=== PATIENT | female | born 1950 | race Caucasian/White ===

== ENCOUNTER 2019-02-17 15:36 | Inpatient (IN) | payer OTHER, SELFPAY ==
[2019-02-17] VITALS (14 sets, daily range): BP systolic 118–214; BP diastolic 57–88; PULSE 64–74; RESP 12–18; TEMP 36.6–37.1; O2SAT 88–99; BMI 33.1
[2019-02-17] MEDS: LACTATED RINGERS 1,000 ML 42 ML IV (16:00)
[2019-02-17] MEDS: VANCOMYCIN 1,000 MG/200 ML PIGGYBACK 200 MG IV ×2 (17:55→22:12)
--- NOTE | 2019-02-17 18:08 | SUR.OPER ---
Patient's right wrist displayed red splotches in approximate 6 inch square area prior to surgical procedure.
[2019-02-17] MEDS: fentaNYL 100 MCG/2 ML INJ 50 MCG IV (18:38)
--- NOTE | 2019-02-17 18:39 | PM.OP.1 ---
Operative Date/Time/Diagnoses Date of procedure: 02/17/19 Time of procedure: 18:41 Pre-op diagnosis: Postoperative infection after right carpal tunnel release Post-op diagnosis: same Procedure & Clinicians Procedure: Incision and drainage of deep abscess right wrist Same procedure as scheduled: Yes Indications: The patient is a 68-year-old woman who underwent a right carpal tunnel release approximately [address] Napoleon Lance. She has had swelling and purulent drainage at the surgical incision and has recently developed swelling and the inability to fully extend her fingers. She was seen 2 days ago in clinic and started on oral antibiotics. Unfortunately she did not substantially improve. After discussion the risks benefits and alternatives she has agreed to incision and drainage. Risks discussed included but were not limited to: Potential nerve damage, potential incomplete resolution of infection, potential need for irrigation of the tendon sheath of the fingers, and anesthetic complications such as stroke, myocardial infarction, permanent paralysis and . Surgeon: Troy Saravia Click Yes if Unassisted: Yes Anesthesia Type: General Operative Notes Findings: Edematous synovial scar tissue with no overt purulence. No purulence fluid could be expressed from the fingers into the extended incision. Closure Type: primary Specimen(s): other (Swabs for culture) Prosthetic devices, grafts, tissues, transplants, or devices: None Applied: drain(s) (A Rios drain in the dressing) Estimated Blood Loss (mL): 2 Blood products transfused: none Tourniquet time (min): 28 Procedure in detail: The patient was seen in the preoperative area where she confirmed her right hand was the operative site and this was marked with my initials. She did not receive preoperative antibiotics other than the oral Keflex she had been receiving as an outpatient. She was taken to the operating room and placed on the operating room table where she underwent induction of a general anesthetic. A tourniquet was placed around the proximal forearm and the arm was prepared with Betadine in the usual fashion and drape through sterile drapes. Prior to prepping and draping a multimedia services coordinator-out was performed. The prior surgical incision was extended about 2 cm proximally and distally. This was carried through the forearm fascia to the tendons and followed distally. Although there was some ?dishwater? fluid there was no gross purulence. I then attempted to express any purulence at material from the fingers into the surgical wound by pressing and milking towards the incision. Nothing was produced in the incision. The wound was extensively irrigated after obtaining cultures. Also after obtaining cultures the patient was administered vancomycin intraoperatively. Hemostasis was obtained with electrocautery. A Rios drain was placed in the wound and the skin was closed with horizontal mattress sutures of 4 0 nylon. A bulky dressing was applied to collect the drainage from the Rios drain. The tourniquet was then deflated at a total tourniquet time of 28 minutes. The patient was returned to the recovery room in good condition having tolerated the procedure well. It should be noted that in recovery she confirmed that she had intact light touch in all digits. Complications: none Condition: stable Disposition: PACU Plan for aftercare: We will maintain her in the hospital on vancomycin until clinical improvement and until cultures return with sensitivities to allow outpatient treatment with appropriate antibiotics. The dressing will be removed and the [place] drain removed on Friday morning.
[2019-02-17] MEDS: HYDROCODONE/ACET 5/325 TABLET 1 TAB PO (18:50)
--- NOTE | 2019-02-17 18:50 | P.OP_ITS ---
Operative Date/Time/Diagnoses Date of procedure: 02/17/19 Time of procedure: 18:41 Pre-op diagnosis: Postoperative infection after right carpal tunnel release Post-op diagnosis: same Procedure & Clinicians Procedure: Incision and drainage of deep abscess right wrist Same procedure as scheduled: Yes Indications: The patient is a 68-year-old woman who underwent a right carpal tunnel release approximately [address] Napoleon Lance. She has had swelling and purulent drainage at the surgical incision and has recently developed swelling and the inability to fully extend her fingers. She was seen 2 days ago in clinic and started on oral antibiotics. Unfortunately she did not substantially improve. After discussion the risks benefits and alternatives she has agreed to incision and drainage. Risks discussed included but were not limited to: Potential nerve damage, potential incomplete resolution of infection, potential need for irrigation of the tendon sheath of the fingers, and anesthetic complications such as stroke, myocardial infarction, permanent paralysis and . Surgeon: Troy Saravia Click Yes if Unassisted: Yes Anesthesia Type: General Operative Notes Findings: Edematous synovial scar tissue with no overt purulence. No purulence fluid could be expressed from the fingers into the extended incision. Closure Type: primary Specimen(s): other (Swabs for culture) Prosthetic devices, grafts, tissues, transplants, or devices: None Applied: drain(s) (A Rios drain in the dressing) Estimated Blood Loss (mL): 2 Blood products transfused: none Tourniquet time (min): 28 Procedure in detail: The patient was seen in the preoperative area where she confirmed her right hand was the operative site and this was marked with my initials. She did not receive preoperative antibiotics other than the oral Keflex she had been receiving as an outpatient. She was taken to the operating room and placed on the operating room table where she underwent induction of a general anesthetic. A tourniquet was placed around the proximal forearm and the arm was prepared with Betadine in the usual fashion and drape through sterile drapes. Prior to prepping and draping a medical legal investigator-out was performed. The prior surgical incision was extended about 2 cm proximally and distally. This was carried through the forearm fascia to the tendons and followed distally. Although there was some ?dishwater? fluid there was no gross purulence. I then attempted to express any purulence at material from the fingers into the surgical wound by pressing and milking towards the incision. Nothing was produced in the incision. The wound was extensively irrigated after obtaining cultures. Also after obtaining cultures the patient was administered vancomycin intraoperatively. Hemostasis was obtained with electrocautery. A Rios drain was placed in the wound and the skin was closed with horizontal mattress sutures of 4 0 nylon. A bulky dressing was applied to collect the drainage from the Rios drain. The tourniquet was then deflated at a total tourniquet time of 28 minutes. The patient was returned to the recovery room in good condition having tolerated the procedure well. It should be noted that in recovery she confirmed that she had intact light touch in all digits. Complications: none Condition: stable Disposition: PACU Plan for aftercare: We will maintain her in the hospital on vancomycin until cl inical improvement and until cultures return with sensitivities to allow outpatient treatment with appropriate antibiotics. The dressing will be removed and the [place] drain removed on Friday morning.
--- NOTE | 2019-02-17 18:57 | SUR.PHASEI ---
Reported off to Nathalie MICHELLE.
[2019-02-17] MEDS: HYDROMORPHONE 2 MG INJ 0.5 MG IV ×2 (18:59→19:08)
[2019-02-17] MEDS: diphenhydrAMINE 25 MG TABLET PO ×2 (19:23→22:26)
--- NOTE | 2019-02-17 19:26 | SUR.PHASEI ---
Dr. Desai was informed of pt's elevated blood pressure and she said it would settle down. pt has been given pain medication and ice pack her pain continues to be fluctuate from a 5-7 . pt also takes blood pressure medication at home.
[2019-02-17] MEDS: LACTATED RINGERS 1,000 ML 125 ML IV (20:10)
[2019-02-17 20:48] LABS: Estimated Glomerular Filt Rate > 60.0 mL/min (>60)
[2019-02-17] MEDS: ACETAMINOPHEN 325 MG TABLET 975 MG PO (22:17)
[2019-02-17] MEDS: OXYCODONE IR 5 MG TABLET PO (22:26)
[2019-02-18] VITALS (7 sets, daily range): BP systolic 143–163; BP diastolic 52–72; PULSE 65–82; RESP 16–17; TEMP 36.5–37; O2SAT 93–97
--- NOTE | 2019-02-18 00:19 | PC.NURSE ---
1944- Pt arrived to room 210 from PACU via bed. A/O x4. Right wrist splint/wrap, jens drain unexposed, wiggle fingers, cap refill <2sec, puffy and erythema, pt reports no tingling, and pain 7/10, medicated with percolone 5mg and benedryl 25mg for itching from oxy. RFA LR @ 125. SBA to BRP to void. Hx UC, 40yr iliostomy, changed bag last night at home. VSS, bed alarm on.
[2019-02-18] MEDS: OXYCODONE IR 5 MG TABLET PO ×6 (02:23→23:39)
[2019-02-18 06:39] LABS: Hematocrit 38.5 % (36-46); Hemoglobin 12.7 g/dL (12.0-16.0); Mean Corpuscular HGB Conc 32.9 % (30-36); Mean Corpuscular Hemoglobin 29.6 PG (26-34); Platelet Count 153 X10^3/uL (150-400); Red Blood Cell Count 4.28 X10^6/uL (4.0-5.2); Red Cell Distribution Width 13.8 % (11.6-14.8); White Blood Cell Count 7.1 X10^3/uL (4.5-11.0)
[2019-02-18] MEDS: diphenhydrAMINE 25 MG TABLET PO ×3 (06:43→20:55)
--- NOTE | 2019-02-18 06:46 | PC.NURSE ---
Addendum entered by Brittany Lewis R.N. 02/18/19 07:28: Bedside hand-off report given to Angelica MICHELLE Original Note: Assumed care of pt at 2300 on 02/17/19. Drsg to R. wrist c/d/i. CMS+, able to wiggle fingers. Denies numbness. PO pain medication effective. Low fall risk, Pt now independent in room. Advised pt to call for assist if she feels dizzy or sleepy. IV s.l. at 0645. Pt caring for her ileostomy independently. Advised pt to save all output for accurate documentation. Calling appropriately for needs.
--- NOTE | 2019-02-18 08:49 | CM.DANOTE ---
DCP: Case received, EMR reviewed and met with patient. Introduced self and role. Was able to obtain health history, and living situation from patient. DCP template assessment completed with information currently available. Patient is a 68 year old female who admitted yesterday afternoon to the care of the orthopedic team. Payer: [employer]/Medicare A. Patient came to the hospital secondary to swelling and redness to her right wrist and fingers. Patient had surgery for Carpal Tunnel approximately three weeks ago, with Dr. Chu at [facility]. Patient holds diagnosis of postoperative infection, in which they did surgery yesterday. Met with patient in her room. Pleasant. Stated that she had swelling and redness to her fingers and wrist. She lives home alone, has a son in [facility] named Doc, who is currently out of town. Patient is employed at [employer]. She stated, she has friends that can help her out, and her friend Diana will be the one to pick her up. Patient may also be doing outpatient physical therapy. P: DCP to continue to follow closely and be available for any resources if needed. She will also be working with therapy team. Radha Hale RN/Assistant Federal Public Defender
[2019-02-18] MEDS: ACETAMINOPHEN 325 MG TABLET 975 MG PO ×3 (08:55→22:14)
[2019-02-18] MEDS: LOSARTAN 50 MG TABLET PO (08:55)
[2019-02-18] MEDS: ATENOLOL 25 MG TABLET PO (08:56)
[2019-02-18] MEDS: SODIUM CHLORIDE 0.9% FLUSH 10 ML IV ×2 (08:57→22:15)
[2019-02-18] MEDS: methIMAzole 5 MG TABLET PO (08:57)
--- NOTE | 2019-02-18 09:30 | P.PN_ITS ---
Subjective Date Patient Seen: 02/18/19 Time Patient Seen: 09:26 Interval history: Patient's pain is mild. Denies fever chills. No nausea vomiting. Exam Vital Signs (past 8 hours): - 02/18/19 04:33 02/18/19 08:00 Temperature 97.7 F 98.5 F Pulse Rate 73 82 Respiratory Rate 16 17 Blood Pressure 160/72 H 145/60 H Pulse Oximetry 95 95 Oxygen Delivery Method Room Air Oxygen Flow Rate 0 Narrative Exam Narrative: Pleasant 68-year-old female resting comfortably in bed in no apparent distress. Dressing on the right hand is intact and dry. Good movement of the fingers without pain. Capillary refill less than 2 seconds. Sensation intact to light touch. Minimal swelling about the finger tips. Objective Labs Result Diagrams: 02/18/19 06:00 02/17/19 20:17 Labs: Laboratory Results - last 24 hr 02/17/19 02/18/19 20:17 06:00 WBC 7.1 RBC 4.28 Hgb 12.7 Hct 38.5 MCV 90.0 MCH 29.6 MCHC 32.9 RDW 13.8 Plt Count 153 Creatinine 0.70 Estimated GFR > 60.0 COMMENTS: Comment Aerobic, anaerobic and gram stain Procedure Result Verified Site Gram Stain Final 02/17/191944 No Organism Seen No organisms seen White blood cells Occasional WBC seen Aerobic Culture for wounds Pending Anaerobic Culture Pending Assessment & Plan Post-op Postoperative Procedures Operation Date: 02/17/19 17:00 Actual Procedures Side Surgeon p Incision & Drainage deep wrist abscess Right Troy Saravia MD Postop day 1 status post incision and drainage deep abscess right wrist. Patient will be on IV vancomycin until culture results are back since she failed outpatient treatment with Keflex. Dressing will be removed and the [place] drain removed on Friday morning.
--- NOTE | 2019-02-18 14:25 | PC.NURSE ---
Ortho: Only complaint is the bed, she has had back surgery in the past. Beds were swapped out. Dressing to the rt hand is d/i, fingers sl swollen, has brisk cap refill and moves fingers w/out diff. Po pain meds have been effective. Plan is to do a dressing change tomorrow and cont antibiotics until culture results return. Pt denies any problems at this time, cont w/poc.
--- NOTE | 2019-02-18 18:05 | OT.IP.EVAL ---
Current Diagnoses Infection following a procedure, deep incisional surgical site, initial encounter (02/17/19) Surgery Performed Operation Date: 02/17/19 17:00 Actual Procedures p Incision & Drainage deep wrist abscess(Right) - Troy Saravia MD Occupational Therapy Inpatient Evaluation/Re-Eval M1 PT/OT-IP Prior Functional Status Start: 02/18/19 17:42 Freq: NEEDED Status: Active Protocol: Document 02/18/19 17:42 [facility] (Rec: 02/18/19 18:04 [facility] [id number]) Medical Review Prior Functional Status Medical History Reviewed Yes Diet/Fluid Consistency Regular Thin Liquids Communication Independent. Mobility and Gait Independent with no devices. Activities of Daily Living and IADL's Completely independent with ADL's, IADl's, driving , and working. Social History Household Members none Living Arrangements Apartment/Condo Number of Stairs To Enter/Railing? Pt states had flight of step and landing and another flight of steps with right hand rail to get to her condo. Home Environment Walk in Shower Tub/Shower Home Equipment Front Wheel Walker Straight Cane M2 OT-IP Current Condition Start: 02/18/19 17:42 Freq: Status: Active Protocol: Document 02/18/19 17:42 [facility] (Rec: 02/18/19 18:04 [facility] [id number]) Occupational Therapy Current Condition Current Condition Evaluation Date 02/18/19 Treatment Diagnosis S/P I and D deep abscess right wrist Diagnosis Onset Date 02/17/19 Post Operative Precautions Other Precautions Pt's right hand in splint/ dressing. M3 OT- IP Subjective and Pain Start: 02/18/19 17:42 Freq: Status: Active Protocol: Document 02/18/19 17:42 [facility] (Rec: 02/18/19 18:04 [facility] [id number]) OT- Subjective Occupational Therapy Visit Type Type Initial Evaluation Visit Start Time 11:15 Visit Stop Time 11:25 Total Visit Minutes 10 Occupational Therapy Visit Comments Patient Comments Pt agreeable to do OT eval. Patient/Caregiver Goals To go home. OT Pain Assessment Pain When Pain Assessed At Rest Pain Present Pain Present Denied Pain M4 OT- IP ADL's Start: 02/18/19 17:42 Freq: Status: Active Protocol: Document 02/18/19 17:42 [facility] (Rec: 02/18/19 18:04 [facility] [id number]) OT ADL-Dressing General Eval Lower Body Dressing Ability Independent OT ADL-Toileting General Evaluation Toileting Ability Independent OT ADL-Bathing Comments OT Bathing Comments Not completed. M5 OT- IP IADL's Start: 02/18/19 17:42 Freq: Status: Active Protocol: Document 02/18/19 17:42 [facility] (Rec: 02/18/19 18:04 [facility] [id number]) OT-Instrumental Activities of Daily Living Deficits IADL Deficits Identified No Deficits Home Safety Awareness Awareness of Need for Assistance at Home Good Awareness Ability to Problem Solve Emergency Able to Problem Solve Situations Medication Management Medication Management No Deficits Identified Money Management Money Management No Deficits Identified Letterset Press Set Up Operator Letterset Press Set Up Operator Comments Pt states has friends that can help. M6 OT- IP Functional Cognition Start: 02/18/19 17:42 Freq: Status: Active Protocol: Document 02/18/19 17:42 [facility] (Rec: 02/18/19 18:04 [facility] [id number]) Cognitive Factors Limiting Selfcare Function Cognitive Ability Level of Alertness Alert Patient Orientation Name Age Birthday Month Date Year Day of Week Place Situation Attention Span Ability Capable of Focused Attention Capable of Sustained Attention Ability to Follow Commands Able to Follow Multi-Step Commands Memory Description No Deficits Noted Safety Awareness No Deficits Noted Problem Solving Ability No deficits Noted Executive Function Ability No Deficits Noted Cognitive Comments Cognitive Assessment Comments Pt intact. OT- Vision and Hearing OT- Hearing Assessment OT- Hearing Assessment WFL M7 OT- IP Mobility and Balance Start: 02/18/19 17:42 Freq: Status: Active Protocol: Document 02/18/19 17:42 [facility] (Rec: 02/18/19 18:04 [facility] [id number]) OT- Bed Mobility Assessment Supine to Sit Supine to Sit Assist Independent Sit to Supine Sit to Supine Assist Independent Scooting Scooting to Edge of Bed Independent Scooting Up and Down in Bed Independent OT-Transfer Assessment Sit to and From Stand Sit to and from Stand Independent Transfers Transfer Ability Independent Technique Transfer Destination Bed Devices Transfer Assistive Devices None Gait Belt Comments Mobility Comments Pt completely independent with all mobility needs. OT- Balance Assessment Sitting Balance and Reactions Static Sitting Balance Ability Normal Dynamic Sitting Balance Ability Normal Standing Balance and Reactions Static Standing Balance Ability Normal Dynamic Standing Balance Ability Good M8 OT- IP Objective Assessments Start: 02/18/19 17:42 Freq: Status: Active Protocol: Document 02/18/19 17:42 [facility] (Rec: 02/18/19 18:04 [facility] [id number]) OT Gross Range of Motion Upper Extremity Range of Motion Assessment Right Impaired ROM Impairments Due to swelling and stiffness, pt not able to flex DIP, and PIP all the way. Able to show pt how to isolate to do ROM on her hand with left hand and actively. Pt able to show good understanding and safety. OT Strength Comments Strength Comments WFL except for right hand and wrist due to recent I and D. OT- Coordination Assessment Comments Coordination Comments Decreased for right hand FMS due to swelling. OT Sensation Assessment Comments Summary Comments Right 2nd and 3rd digit not as sensitive during light touch per pt. Edema Edema Present M9 OT- IP Assessment and Plan Start: 02/18/19 17:42 Freq: Status: Active Protocol: Document 02/18/19 17:42 [facility] (Rec: 02/18/19 18:04 [facility] [id number]) OT Summary Assessment and Plan Potential Rehabilitation Potential Excellent Analytic Complexity at Evaluation Low Summary OT Impairments Range of Motion Strength Coordination Sensation Progress Towards Goals Progressing Toward Goals Assessment Summary Pt low complexity and currently independent in the room for all needs of ADl's and functional mobility. Pt awaiting culture for I and D for right wrist. Pt has son and friends that can assist her if needed. Pt may need further therapy of hand therapy once splint/dressing taken off and when deemed appropriate by surgeon. Goals OT-Other Goals Pt to be independent with ROM for right hand. Days to Meet Goals 1 Frequency of Treatment Frequency Of Treatment Once a Day Treatment Plan OT Treatment Plan Therapeutic Exercises Discharge Planning Other Treatment Recommendations and Next To check on pt for any other Treatment Focus OT needs tomorrow. Discharge Recommendations OT Discharge Recommendations Home with Assistance
[2019-02-18] MEDS: VANCOMYCIN 1,000 MG/200 ML PIGGYBACK 200 MG IV (18:07)
--- NOTE | 2019-02-18 23:50 | PC.NURSE ---
Addendum entered by Michelle Zheng R.N. 02/19/19 05:48: Patient slept most of night. States pain is 2-3/10 this morning; achy. Requested/medicated with scheduled Tylenol early as did not want to take Oxycodone at this time. CMS remains intact. Original Note: Patient is alert and oriented. Breath sounds CTA with RA sat of 93%. HRR. BP elevated at 153/53. Denies nausea. BT present; has chronic ileostomy and bag is not see through so unable to assess stoma. Denies dysuria, frequency or urgency. Independent with mobility. Dressing/wrap to right hand is intact; able to see old sanguinous drainage on gauze beneath wrap. States pain is currently 5/10; medicated with Oxycodone and is elevated on pillows; declines ice pack. CMS is intact although has some puffiness to fingers. Refusing SCD's despite information regarding prevention of DVT; verbalizes understanding. Fall risk score is low.
[2019-02-19] MEDS: SODIUM CHLORIDE 0.9% 250 ML 21 ML IV (05:39)
[2019-02-19] MEDS: VANCOMYCIN 1,000 MG/200 ML PIGGYBACK 200 MG IV (05:40)
[2019-02-19] MEDS: SODIUM CHLORIDE 0.9% FLUSH 10 ML IV ×3 (05:41→20:40)
[2019-02-19] MEDS: ACETAMINOPHEN 325 MG TABLET 975 MG PO ×3 (05:41→20:39)
[2019-02-19 05:50] VITALS: BP 158/68; PULSE 66; RESP 16; TEMP 36.9; O2SAT 97
[2019-02-19 08:00] VITALS: BP 161/60; PULSE 69; RESP 18; TEMP 36.8; O2SAT 98
--- NOTE | 2019-02-19 08:40 | PM.PNPO.1 ---
Subjective Date Patient Seen: 02/19/19 Time Patient Seen: 08:40 Interval history: Patient is POD#2 s/p Incision and drainage of deep abscess right wrist with Dr. Saravia. Pain has been well managed with Tylenol and occasional oxycodone. Does have itching with Oxycodone which she has recieved benadryl for. Swelling has improved. She denies any numbness or tingling in the extremity. No chest pain or shortness of breath. Exam Vital Signs (past 8 hours): - 02/19/19 05:50 Temperature 98.4 F Pulse Rate 66 Respiratory Rate 16 Blood Pressure 158/68 H Pulse Oximetry 97 Oxygen Delivery Method Room Air Oxygen Flow Rate 0 Narrative Exam Narrative: Pleasant 68 year old female resting in bed, in no acute distress. Alert and oriented. Mild erythema and swelling about the incision. Full ROM of the fingers. Mild swelling in the wrist and hand. Sensation intact to light touch. 5/5 finger intrinsics. Brisk capillary refill. Objective Labs Result Diagrams: 02/18/19 06:00 02/17/19 20:17 Assessment & Plan Post-op Postoperative Procedures Operation Date: 02/17/19 17:00 Actual Procedures Side Surgeon p Incision & Drainage deep wrist abscess Right Troy Saravia MD Rios drain and surrounding dressing removed. New dressing applied. Patient is pending final cultures and sensitivities. Likely transition to oral antibiotics and discharge home tomorrow.
[2019-02-19] MEDS: OXYCODONE IR 5 MG TABLET PO (09:19)
[2019-02-19] MEDS: diphenhydrAMINE 25 MG TABLET PO (09:20)
[2019-02-19] MEDS: LOSARTAN 50 MG TABLET PO (09:20)
[2019-02-19] MEDS: methIMAzole 5 MG TABLET PO (09:20)
[2019-02-19] MEDS: ATENOLOL 25 MG TABLET PO (09:21)
[2019-02-19 13:00] VITALS: BP 152/60; PULSE 75; RESP 16; TEMP 36.9; O2SAT 97
[2019-02-19 16:00] VITALS: BP 156/76; PULSE 74; RESP 17; TEMP 36.9; O2SAT 98
--- NOTE | 2019-02-19 17:20 | PC.NURSE ---
Addendum entered by Vitaliy Fitzgerald R.N. 02/19/19 19:29: checked after 10 mins and burning returned. IV inspected, flush was painful, no blood return. IV was d/c'd and new one placed in LT FA. by patricia. Addendum entered by Vitaliy Fitzgerald R.N. 02/19/19 18:22: Started antibx through IV, patient immediatly c/o burning w/ Vanco, inspection of IV was done, redness is noted around IV site. Patient denies any pain w/ palpation and states she is certain its from adhesive over IV. Discussed taking IV out and replacing at new site, and lower rate of anti-bx. Patient asked if we can lower rate before removing IV to see if burning improved. Rate was changed to 100ml/hr and burning improved. Margins drawn around erythema at IV site and will cont. to monitor. Original Note: Patient is A&O x4, pleasant and cooperative w/ staff and able to make needs known when nec. Patient is indep. moving in room and ambulated safely on own. Patient reports to OT that she believes her redness and swelling in hand to be increased and ROM has decreased. This nurse was notified. Margins were drawn on around patients redness. Patient reports to this nurse that most of the erythema on top of right hand is a result to a allergic reaction to adhesives from her surgical drg. Margin were drawn around area as well. Patients hand is quite swollen and ROM is limited. Cap refill is <2, patient denies any numbness or tingling to hand. Education done with patient about elevation, having ice on/off of hand for comfort and edema. Coban drg. was removed when this nurse entered room to assess pt. Patient is aware that after ice therapy this nurse will wrap hand in pepe bandage for more support.
--- NOTE | 2019-02-19 18:01 | OT.IP.TRT ---
Current Diagnoses Infection following a procedure, deep incisional surgical site, initial encounter (02/17/19) Surgery Performed Operation Date: 02/17/19 17:00 Actual Procedures p Incision & Drainage deep wrist abscess(Right) - Troy Saravia MD Occupational Therapy Treatment Note M2 OT-IP Current Condition Start: 02/18/19 17:42 Freq: Status: Active Protocol: Document 02/18/19 17:42 [facility] (Rec: 02/18/19 18:04 [facility] [id number]) Occupational Therapy Current Condition Current Condition Evaluation Date 02/18/19 Treatment Diagnosis S/P I and D deep abscess right wrist Diagnosis Onset Date 02/17/19 Post Operative Precautions Other Precautions Pt's right hand in splint/ dressing. M3 OT- IP Subjective and Pain Start: 02/18/19 17:42 Freq: Status: Active Protocol: Document 02/19/19 16:00 [facility] (Rec: 02/19/19 18:01 [facility] [id number]) OT- Subjective Occupational Therapy Visit Type Type Treatment Note Visit Start Time 15:30 Visit Stop Time 16:00 Total Visit Minutes 30 Notes Pt agreeable to see OT and complaining that her fingers feel stiffer. Back of hand swollen more and notes has more redness than this morning on her hand especially with 5th digit of right hand. Occupational Therapy Visit Comments Patient Comments Pt willing to have OT look at her hand. OT Pain Assessment Pain When Pain Assessed At Rest Pain Present Pain Present Pain Reported Location Right Hand Intensity 3 Scale Used Numeric (1 - 10) M4 OT- IP ADL's Start: 02/18/19 17:42 Freq: Status: Active Protocol: Document 02/19/19 16:00 [facility] (Rec: 02/19/19 18:01 [facility] [id number]) OT ADL-Grooming Comments OT Grooming Comments Pt able to do grooming but reminded pt to be sure not to get right hand wet. Having to assist pt to wash right hand with wet wash cloth as per pt still had dried blood from when drain taken out. Notified nursing that the dressing needs to be reinforced as coming up just on her palm. OT ADL-Toileting Comments OT Toileting Comments Pt has been using the toilet on her use and insists that she is managing her Ileostomy bag on her own. OT ADL-Bathing Comments OT Bathing Comments Per pt able to shower and had her right hand gloved during the shower. 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 M6 OT- IP Functional Cognition Start: 02/18/19 17:42 Freq: Status: Active Protocol: Document 02/18/19 17:42 [facility] (Rec: 02/18/19 18:04 [facility] [id number]) Cognitive Factors Limiting Selfcare Function Cognitive Ability Level of Alertness Alert Patient Orientation Name Age Birthday Month Date Year Day of Week Place Situation Attention Span Ability Capable of Focused Attention Capable of Sustained Attention Ability to Follow Commands Able to Follow Multi-Step Commands Memory Description No Deficits Noted Safety Awareness No Deficits Noted Problem Solving Ability No deficits Noted Executive Function Ability No Deficits Noted Cognitive Comments Cognitive Assessment Comments Pt intact. OT- Vision and Hearing OT- Hearing Assessment OT- Hearing Assessment WFL M7 OT- IP Mobility and Balance Start: 02/18/19 17:42 Freq: Status: Active Protocol: Document 02/18/19 17:42 [facility] (Rec: 02/18/19 18:04 [facility] [id number]) OT- Bed Mobility Assessment Supine to Sit Supine to Sit Assist Independent Sit to Supine Sit to Supine Assist Independent Scooting Scooting to Edge of Bed Independent Scooting Up and Down in Bed Independent OT-Transfer Assessment Sit to and From Stand Sit to and from Stand Independent Transfers Transfer Ability Independent Technique Transfer Destination Bed Devices Transfer Assistive Devices None Gait Belt Comments Mobility Comments Pt completely independent withi all mobility needs. OT- Balance Assessment Sitting Balance and Reactions Static Sitting Balance Ability Normal Dynamic Sitting Balance Ability Normal Standing Balance and Reactions Static Standing Balance Ability Normal Dynamic Standing Balance Ability Good M8 OT- IP Objective Assessments Start: 02/18/19 17:42 Freq: Status: Active Protocol: Document 02/19/19 16:00 [facility] (Rec: 02/19/19 18:01 [facility] [id number]) OT Gross Range of Motion Upper Extremity Range of Motion ROM Impairments Right 2nd digit WFL PROM, 3rd -15 degrees finger extension, 4th -20 degrees finger ex, 5th -25 degrees. Pt AROM more limited to extend finger and unable to close her fist due to swelling. OT Sensation Assessment Edema Edema Present Edema Comments Dorsal side of right hand MOD/ max swelling and fingers today moderate swelling noted. Ji wrap taken off to do gentle ROM to fingers and wrist. Nurse states to put pepe wrap on instead as per pt's request as well. M9 OT- IP Assessment and Plan Start: 02/18/19 17:42 Freq: Status: Active Protocol: Document 02/19/19 16:00 [facility] (Rec: 02/19/19 18:01 [facility] [id number]) OT Summary Assessment and Plan Potential Rehabilitation Potential Good Analytic Complexity at Evaluation Low Summary OT Impairments Range of Motion Strength Coordination Sensation Progress Towards Goals Slow Progress due to Medical Issues Assessment Summary Note increased swelling and redness to right hand, nursing notified and nurse able to daniel areas of redness. Still recommend that pt see hand therapy to continue to work on ROM and function right hand as deem appropriate per surgeon. Goals OT-Other Goals Pt to be independent with ROM for right hand. Days to Meet Goals 3 Frequency of Treatment Frequency Of Treatment Once a Day Treatment Plan OT Treatment Plan Therapeutic Exercises Discharge Planning Discharge Recommendations OT Discharge Recommendations Home with Assistance
[2019-02-19] MEDS: VANCOMYCIN 1,000 MG/200 ML PIGGYBACK 100 MG IV (18:20)
[2019-02-19 21:37] VITALS: BP 162/67; PULSE 66; RESP 16; TEMP 36.9; O2SAT 97
[2019-02-20 00:40] VITALS: BP 119/72; PULSE 70; RESP 16; TEMP 37; O2SAT 97
--- NOTE | 2019-02-20 00:51 | PC.NURSE ---
Addendum entered by Michelle Zheng R.N. 02/20/19 05:54: [place] areas on bilateral forearms still present; right forearm area softer. Fingers of right hand more puffy this morning but CMS still intact. Denies pain. Informed of isolation procedures and purpose; verbalizes understanding. Addendum entered by Michelle Zheng R.N. 02/20/19 02:39: Noted wound culture is now growing staph aureus so placed on contact isolation. Original Note: Patient is alert and oriented. Breath sounds diminished but CTA with RA sat of 96%. HRR. Denies nausea. BT present and abdomen is soft. Voiding without dysuria, frequency or urgency. Independent with bed mobility. Dressing/pepe to right hand is CDI. Fingers remain puffy with decreased ROM. Declines offer of ice pack to help reduce swelling. Encouraged to keep right arm elevated. Area on proximal fingers of right hand and right forearm are pink and within previously drawn markings, but area on forearm is firm to touch. Denies pain. Area on left forearm is also pink but within previously drawn markings. Fall risk score is low. Refusing SCD's despite information re: DVT prevention, again reminded to ankle wave.
[2019-02-20] MEDS: SODIUM CHLORIDE 0.9% FLUSH 10 ML IV ×2 (05:35→08:38)
[2019-02-20] MEDS: VANCOMYCIN 1,000 MG/200 ML PIGGYBACK 200 MG IV (05:35)
[2019-02-20 05:56] VITALS: BP 141/64; PULSE 70; RESP 16; TEMP 37.1; O2SAT 97
[2019-02-20 07:30] VITALS: BP 174/62; PULSE 70; RESP 16; TEMP 36.6; O2SAT 100
[2019-02-20] MEDS: LOSARTAN 50 MG TABLET PO (08:37)
[2019-02-20] MEDS: ACETAMINOPHEN 325 MG TABLET 975 MG PO (08:37)
[2019-02-20] MEDS: diphenhydrAMINE 25 MG TABLET PO (08:37)
[2019-02-20] MEDS: methIMAzole 5 MG TABLET PO (08:38)
[2019-02-20] MEDS: ATENOLOL 25 MG TABLET PO (08:38)
--- NOTE | 2019-02-20 10:05 | PC.NURSE ---
Pt's r.wrist with tegaderm and 4x4 on with pepe wrap on wound. Pt has some redness to her forearm on both sides, She has been ithing her fingers and forearm. Encouraged not to do this, but pt continues to itch. Black pen outlined around reddened area's last night and they have not extended out of margines. Pt is up independently. She will most likely be discharging today.
--- NOTE | 2019-02-20 10:09 | PM.DS.1 ---
History of Present Illness Date Patient Seen: 02/20/19 Time Patient Seen: 10:11 Chief complaint: Right Incision and Drainage Wound/Extremity Narrative: Hospital day 4, postop day 3 following right wrist abscess status post open carpal tunnel release. Patient states she is doing much better today. Hand pain improving. Swelling has gone down. Using Tylenol for discomfort. Currently on vancomycin 1000 mg q.12h IV. Wound culture noted Staph aureus sensitive to all accepts clindamycin and erythromycin. I did talk with Dr. Farnsworth regarding culture results and it was decided to put patient on Bactrim DS 1 b.i.d.. Patient feels that she is ready to be at home. Discharge Providers Date of admission: 02/17/19 15:36 Discharge Date: 02/20/19 Primary care physician: Lilian Easley MD Consults: 02/17/19 20:00 Consult to Discharge Planning Routine Comment: Consult to Occupational Therapy Evaluate & Treat Comment: finger ROM Physician Instructions: Evaluate and treat Discharge provider: Jd Wade PA-C Summary Discharge Diagnosis: Status post right wrist postop abscess I and D Hospital Course: Patient brought to hospital on 02/17/2019 with a right wrist abscess secondary to open carpal tunnel release. She had been treated with Keflex without improvement. Patient had I and D done 02/17/[address] Saravia. Treated with vancomycin 1000 mg q.12h IV with good improvement. Culture results noted Staph aureus which was sensitive to all except clindamycin erythromycin. Patient was started on Bactrim DS 1 b.i.d. and discharged home on postop day 3. Time Spent with Patient Less than 30 minutes Exam Vital Signs (past 8 hours): - 02/20/19 05:56 02/20/19 07:30 Temperature 98.7 F 98 F Pulse Rate 70 70 Respiratory Rate 16 16 Blood Pressure 141/64 H 174/62 H Pulse Oximetry 97 100 Oxygen Delivery Method Room Air Oxygen Flow Rate 0 Narrative Exam Narrative: Alert, oriented no acute distress resting in bed. Right arm. Good blanching and sensation to all fingers. Mild swelling of the hand and fingers. Dressing is dry. Significant improvement and erythema to the demarcated areas of her hand and wrist. She does have a moderately erythematous macular papular rash to the volar aspect of her wrist in the area of the surgical prep. The remainder of the hand appears clear. Objective Labs Result Diagrams: 02/18/19 06:00 02/17/19 20:17 Discharge Plan Discharge Plan Patient Disposition: Home Discharge comment: Apply CovRsite dressing to wrist wound. Patient will be started on Bactrim DS 1 b.i.d. times 10 days. She needs postop visit at orthopedic Office in 10 days. Avoid forceful gripping or twisting of right hand and no lifting or carrying with right hand more than 1 lb. Discharge Med Rec/Prescriptions Prescriptions: New acetaminophen 325 mg Tablet 975 mg PO TID Qty: 30 RF: 0 sulfamethoxazole-trimethoprim 800-160 mg tablet 1 tab PO BID Qty: 20 RF: 0 Continued losartan 50 mg tablet 50 mg PO DAILY RF: 0 methimazole 5 mg tablet 5 mg PO DAILY RF: 0 atenolol 50 mg tablet 25 mg PO DAILY RF: 0 clobetasol 0.05 % gel 1 applictn TOP BID 180 Days Qty: 30 RF: 2 Follow up/Referrals: Lilian Easley MD [Primary Care Provider] - Provider Discharge Instructions Diet: Diet as Tolerated Activity: No forceful gripping or twisting of right hand. No lifting or carrying more than 1 lb with right hand. Skin/Wound/Dressing Care Report to your healthcare provider any signs of infection, such as:: chills, fever, night sweats, increased pain, unusual drainage and unusual redness Visit Report/Discharge Packet Instructions: DI for Incision and Drainage Discharge Data Primary Care Provider: Lilian Easley Attending Provider: Troy Saravia Admit Date/Time: 02/17/19 15:36
--- NOTE | 2019-02-20 10:49 | CM.DPC ---
Addendum entered by oTry Osborne LPN 02/20/19 12:00: Checked in now with pt after she completed her shower. DL #2: presented to pt and signed as per weekend protocol. Will give to [facility] to scan. Pt confirms she feels very comfortable going home today. She will make her followup appts on Friday, says her friend is on her way and she as plenty of help is she needs it. Addendum entered by Tory Osborne LPN 02/20/19 11:01: OT has been working with pt and reports that she is managing well, including managent of her termination clerk ileostomy. Addendum entered by Tory Osborne LPN 02/20/19 10:59: Went to room to check in with pt. She is in the shower and has packed her items for home. Per care team members she is comfortable with the d/c today and eager to return to her home setting with prn friends support Original Note: DCP: continued: case received and discussed in Team Rounds, EMR reviewed. Pt is now ok'd for d/c to home and on oral antibiotics.
--- NOTE | 2019-02-20 11:19 | PC.NURSE ---
Pt showered, dressed, packed up and dressing has been changed. Pt was given a spare dressing in case the new one gets wet or damaged. Went over d/c meds, time of last dose, reviewed stroke education and follow up. Pt reviewed instructions for post op hand care (lifting/gripping etc.) Pt denies further questions and is ready to be taken out to pov with friend and all belongings.
== END 2019-02-20 12:00 | disposition home or self-care (01) | DRG 857 ==
PROVIDERS: Admitting Provider Orthopaedic Surgery; PCP Family Medicine; Visit Provider Orthopaedic Surgery
PROC: 0J9G0ZZ Drainage of Right Lower Arm Subcutaneous Tissue and Fascia, Open Approach (ICD-10-PCS; principal; 2019-02-17 17:00)
DX: T81.42XA Infection following a procedure, deep incisional surgical site, initial encounter (principal); L02.413 Cutaneous abscess of right upper limb; B95.61 Methicillin susceptible Staphylococcus aureus infection as the cause of diseases classified elsewhere; I10 Essential (primary) hypertension
CPT/HCPCS: 36415; 82565; 85027; 87070; 87075; 87077; 87147; 87186; 87205; 97110; 97165; 97530; J1170; J2250; J2405; J2704; J3010